=== PATIENT | male | born 1990 | race African-American/Black ===

== ENCOUNTER 2020-02-29 16:27 | Inpatient (IN) | payer OTHER ==
[~2020-02-29 16:27] MED LIST: Iopamidol 370 76% 50 ML VIAL FS ONE; Iopamidol-370 76% 500 ML 1 ML ONE
[2020-02-29] MEDS ORDERED: Ondansetron PF 4 MG/2 ML Vial ONE (16:36)
[2020-02-29] MEDS ORDERED: Fentanyl 100 MCG/2 ML VIAL ONE ×2 (16:36→18:59)
[2020-02-29] MEDS ORDERED: Boostrix 0.5 ML VIAL ONE (16:38)
[2020-02-29 16:47] LABS: #Basophils 0.1 thou/uL (0.0-0.2); #Eosinphils 0.3 thou/uL (0.0-0.7); #Lymphocytes 4.8 thou/uL (1.20-3.40); #Monocytes 0.7 thou/uL (0.11-0.59); #Neutrophils 8.6 thou/uL (1.40-6.50); %Basophils 0.6 % (0.0-1.0); %Lymphocytes 33.2 % (21.0-51.0); %Monocytes 4.6 % (0.0-10.0); %Neutrophils 59.6 % (42.0-75.0); Hemoglobin 16.6 g/dL (14.0-18.0); Mean Corpuscular HGB CONC 33.6 g/dL (32.0-36.0); Mean Corpuscular Hemoglobin 33.5 pg (27.0-31.0); Mean Corpuscular Volume 99.7 fL (78.0-98.0); Mean Platelet Volume 7.5 fL (7.4-10.4); Platelet Count 339 thou/uL (130-400); RBC Distribution Width 11.3 % (11.5-14.5); Red Blood Cell (RBC) Count 4.97 mill/uL (4.70-6.10); White Blood Cell (WBC) Count 14.5 thou/uL (4.8-10.8)
[2020-02-29 16:52] LABS: INR-International Normal Ratio 1.2; Prothrombin Time 15.5 sec (12.0-14.7)
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
[2020-02-29 16:55] LABS: ALT (SGPT) 74 U/L (8-55); AST (SGOT) 80 U/L (5-34); Albumin 4.2 g/dL (3.5-5.0); Alkaline Phosphatase 89 U/L (40-110); Anion Gap 21 mmol/L (10-20); BUN (Urea Nitrogen) 16 mg/dL (8.9-20.6); Bilirubin, Total 0.3 mg/dL (0.2-1.2); Calc. Creatinine Clearance 0 mL/min (70-130); Calcium 9.1 mg/dL (7.8-10.44); Carbon Dioxide 19 mmol/L (22-29); Chloride 105 mmol/L (98-107); Estimated GFR-MDRD 71; Globulin 3.1 g/dL (2.4-3.5); Glucose 105 mg/dL (70-105); Potassium 3.5 mmol/L (3.5-5.1); Protein, Total 7.3 g/dL (6.0-8.3); Sodium 141 mmol/L (136-145)
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
[2020-02-29] MEDS ORDERED: Ketorolac Tromethamine 30 MG/ML VIAL ONE (17:26)
[2020-02-29] MEDS ORDERED: diphenhydrAMINE 50 MG/ML VIAL IM PRN (17:32)
[2020-02-29] MEDS ORDERED: diphenhydrAMINE 25 MG CAP PO PRN (17:32)
[2020-02-29] MEDS ORDERED: Promethazine HCl 25 MG/ML VIAL IM PRN (17:32)
[2020-02-29] MEDS ORDERED: Naloxone HCl 0.4 mg/ml Vial IV PRN (17:32)
[2020-02-29] MEDS ORDERED: HYDROmorphone 10 mg/100 ml CADD IVPB PRN (17:32)
[2020-02-29] MEDS ORDERED: diphenhydrAMINE 50 MG/ML VIAL IVP PRN (17:32)
[2020-02-29] MEDS ORDERED: Ondansetron PF 4 MG/2 ML Vial IVP PRN (17:32)
[2020-02-29] MEDS ORDERED: Dextrose 50% Abboject 50 ML SYRINGE SLOW IVP PRN (17:41)
[2020-02-29] MEDS ORDERED: Dextrose 5% in Water 1,000 ML IV PRN (17:41)
[2020-02-29] MEDS ORDERED: Communication Order-Pharmacy FS SCH (17:45)
[2020-02-29] MEDS ORDERED: Ketamine 50 MG/ML (10ML VIAL) ONE (17:54)
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
[2020-02-29] MEDS ORDERED: Bacitracin 1 PK ONE (18:22)
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
[2020-02-29 19:41] LABS: Alcohol Less than 10 mg/dL (Less than 10); CK (CPK) 558 U/L (30-200); Magnesium 2.1 mg/dL (1.6-2.6)
[2020-02-29] MEDS ORDERED: Potassium Chloride 20 MEQ in Premix Bag 1 BAG IVPB SCH (20:30)
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
[2020-02-29 20:53] VITALS: BMI 28.3
[2020-02-29] MEDS: Sodium Chloride 0.9% 1,000 ML IV SCH (20:55)
[2020-02-29] MEDS: Bacitracin 1 PK TOP SCH (21:01)
[2020-02-29] MEDS: Gabapentin 300 MG CAP PO SCH (21:01)
[2020-02-29] MEDS: Cyclobenzaprine 10 MG TAB PO PRN (21:02)
[2020-02-29] MEDS: Senokot S 8.6-50 MG TAB PO SCH (21:02)
[2020-02-29] MEDS: Famotidine 20 MG TAB PO SCH (21:02)
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
[2020-02-29] MEDS: Acetaminophen 500 MG TAB PO SCH (23:14)
[2020-02-29] MEDS ORDERED: Ketorolac Tromethamine 30 MG/ML VIAL IVP SCH (23:59)
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
[2020-03-01 03:20] LABS: #Lymphocytes 1.1 thou/uL (1.20-3.40); #Monocytes 0.8 thou/uL (0.11-0.59); #Neutrophils 10.2 thou/uL (1.40-6.50); %Basophils 0.1 % (0.0-1.0); %Eosinophils 0.2 % (0.0-10.0); %Lymphocytes 9.1 % (21.0-51.0); %Monocytes 6.7 % (0.0-10.0); Hemoglobin 13.2 g/dL (14.0-18.0); Mean Corpuscular HGB CONC 34.2 g/dL (32.0-36.0); Mean Corpuscular Hemoglobin 33.9 pg (27.0-31.0); Mean Corpuscular Volume 99.2 fL (78.0-98.0); Mean Platelet Volume 7.4 fL (7.4-10.4); Platelet Count 255 thou/uL (130-400); RBC Distribution Width 11.3 % (11.5-14.5); Red Blood Cell (RBC) Count 3.89 mill/uL (4.70-6.10); White Blood Cell (WBC) Count 12.1 thou/uL (4.8-10.8)
[2020-03-01 03:49] LABS: CK (CPK) 2951 U/L (30-200); Phosphorus 4.1 mg/dL (2.3-4.7)
[2020-03-01] MEDS ORDERED: Fentanyl 100 MCG/2 ML VIAL SLOW IVP SCH (04:45)
[2020-03-01] MEDS ORDERED: Fentanyl 100 MCG/2 ML VIAL ONE ×4 (04:47→18:50)
[2020-03-01] MEDS ORDERED: Lidocaine 1% w/Epinephrine 1:100K 20 ML VIAL ONE (05:01)
[2020-03-01] MEDS: Sodium Chloride 0.9% 1,000 ML IV SCH ×5 (05:51→21:28)
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
[2020-03-01] MEDS: CEFAZOLIN 2 GM in Premix Bag 1 BAG IVPB SCH ×3 (06:54→22:43)
[2020-03-01] MEDS: Acetaminophen 500 MG TAB PO SCH ×4 (07:13→23:52)
[2020-03-01] MEDS: Albuterol 200 PUFF (6.7GM INHALER) INH SCH ×3 (07:30→22:14)
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
[2020-03-01 07:56] LABS: ALT (SGPT) 61 U/L (8-55); AST (SGOT) 74 U/L (5-34); Albumin 3.4 g/dL (3.5-5.0); Alkaline Phosphatase 51 U/L (40-110); Anion Gap 14 mmol/L (10-20); BUN (Urea Nitrogen) 20 mg/dL (8.9-20.6); Bilirubin, Total 0.5 mg/dL (0.2-1.2); Calc. Creatinine Clearance 127 mL/min (70-130); Calcium 7.7 mg/dL (7.8-10.44); Carbon Dioxide 23 mmol/L (22-29); Chloride 108 mmol/L (98-107); Estimated GFR-MDRD 80; Globulin 2.3 g/dL (2.4-3.5); Glucose 142 mg/dL (70-105); Magnesium 1.8 mg/dL (1.6-2.6); Potassium 4.5 mmol/L (3.5-5.1); Protein, Total 5.7 g/dL (6.0-8.3); Sodium 140 mmol/L (136-145)
--- NOTE | 2020-03-01 11:41 | CT ---
CT Pelvis W Con History: Bladder injury. Urethral injury. Comparison: Cystogram same day. Ureterogram same day. CT pelvis prior day Findings: CT of the pelvis performed after instillation of contrast both through the urethra retrogra de and after the retrograde instillation of contrast through the suprapubic catheter. The suprapubic catheter is outside the lumen of the urinary bladder. There is an a small defect in th e right anterior urinary bladder wall with tenting of the urinary bladder. Abnormal extraperitoneal contrast extending through the right anterior abdominal wall from defects of the rectus abdominis/adductor aponeurosis with gas and fluid along the right anterior hemiabdomen soft tissues which is new from the comparison examination. Contrast, fluid and gas also extends into the right inguinal canal and right medial thigh. Complex pelvic fractures are similar. Impression: Small right anterior urinary bladder wall defect with contrast within the urinary bladder as well as extraperitoneal space and tracking along the right anterior abdominal wall fat through defects of the rectus abdominis/adductor aponeurosis. Contrast also extends into the medial right thi gh intermuscular space and right inguinal ring. The gas which extends into the defects is likely sequela of multiple urinary bladder irrigations.
--- NOTE | 2020-03-01 11:44 | RAD ---
XR Urethrogram Retrograde History: Evaluate urethral injury Comparison: None. Findings: 10 mL of contrast was instilled retrograde through the urethra. There is complete rupture o f the membranous urethra with contrast extending into the periurethral space and prevascular space extending along the right medial thigh. Impression: Complete rupture of the membranous urethra with tracking of contrast into the medial righ t thigh.
--- NOTE | 2020-03-01 11:47 | RAD ---
XR Cystogram STANDARD History: Urethral and bladder trauma Comparison: CT examination prior day Findings: Contrast was instilled retrograde through the suprapubic catheter. There is contrast extending into the perivesicular space outside the lumen. Contrast extends into the urinary bladder secondarily after approximately 20 mL of contrast instillation. There is contrast extending into the right chest wall. Impression: 1. Extraluminal suprapubic catheter with the urinary bladder filling secondarily through a small righ t anterior wall defect. 2. Contrast extends from the perivesicular space into the right chest wall. Findings of the retrograde urethrogram, cystogram, and pelvis CT were discussed with Dr. Rajat murdock the morning.
[2020-03-01] MEDS ORDERED: Lidocaine 1% PF 5 ML VIAL ONE (11:50)
[2020-03-01] MEDS ORDERED: Dexamethasone 20 MG/5 ML VIAL ONE (11:50)
[2020-03-01] MEDS ORDERED: Rocuronium Bromide 10 MG/ML (10ML VIAL) ONE (11:50)
[2020-03-01] MEDS ORDERED: Ondansetron PF 4 MG/2 ML Vial ONE (11:50)
[2020-03-01] MEDS ORDERED: PROPOFOL 200 MG/20 ML VIAL ONE (11:50)
[2020-03-01] MEDS ORDERED: Glycopyrrolate 0.2 MG/ML 5 ML SYRINGE ONE (11:50)
[2020-03-01] MEDS ORDERED: Succinylcholine Chloride 20 MG/ML 10 ml SYRINGE FS ONE (11:50)
[2020-03-01] MEDS: Bacitracin 1 PK TOP SCH ×2 (11:57→21:28)
[2020-03-01] MEDS: Senokot S 8.6-50 MG TAB PO SCH ×2 (11:58→21:28)
[2020-03-01] MEDS: Famotidine 20 MG TAB PO SCH ×2 (11:58→21:28)
[2020-03-01] MEDS: Gabapentin 300 MG CAP PO SCH ×3 (11:58→21:28)
[2020-03-01] MEDS: Polyethylene Glycol 3350 17 GM Packet PO SCH (11:58)
[2020-03-01 12:41] LABS: SARS-CoV-2 MS2 Positive; SARS-CoV-2 N Gene Negative; SARS-CoV-2 S Gene Negative; SARS-CoV-2 by NAA Not Detected (NotDetected); SARS-CoV-2 orf1ab Negative
[2020-03-01] MEDS ORDERED: Phenylephrine 10 MG/ML VIAL ONE (13:34)
[2020-03-01] MEDS ORDERED: Sodium Chloride 0.9% 10 ML ONE (14:01)
[2020-03-01] MEDS ORDERED: Sodium Chloride 0.9% 0 ML ONE (14:01)
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
[2020-03-01] MEDS ORDERED: Bupivacaine HCl 0.5%/Epinephrine 1:200,000/PF 30 ml Vial ONE (15:23)
[2020-03-01] MEDS ORDERED: Rocuronium Bromide 50 MG/5 ML VIAL ONE (15:23)
--- NOTE | 2020-03-01 18:18 | RAD ---
AP PELVIS: 03/01/20 A total of six fluoroscopic images presented from OR. INDICATIONS: Intraoperative imaging during open reduction and internal fixation of the pelvis. FINDINGS/IMPRESSION: Findings demonstrate instruments overlying both hemipelvis regions. Intraoperative imaging. POS: AGW
--- NOTE | 2020-03-01 18:19 | RAD ---
LEFT SHOULDER: 03/01/20 A single fluoroscopic image from the OR presented. INDICATIONS: Intraoperative imaging during acromioplasty procedure. FINDINGS/IMPRESSION: AP view of the left shoulder performed during intraoperative imaging. POS: AGW
[2020-03-01] MEDS ORDERED: Meperidine HCl/PF 25 MG/ML VIAL ONE (18:26)
[2020-03-01] MEDS ORDERED: HYDROmorphone 2 MG/ML VIAL SLOW IVP PRN (18:27)
[2020-03-01] MEDS ORDERED: Morphine Sulfate 2 MG/ML SYRINGE SLOW IVP PRN (18:27)
[2020-03-01] MEDS ORDERED: Meperidine HCl/PF 25 MG/ML VIAL SLOW IVP PRN (18:27)
[2020-03-01] MEDS ORDERED: Ketorolac Tromethamine 30 MG/ML VIAL IVP PRN (18:27)
[2020-03-01] MEDS ORDERED: PACU-Morphine 4MG/ML VIAL SLOW IVP PRN (18:27)
[2020-03-01] MEDS ORDERED: Ondansetron HCl/PF 4 MG/2 ML Vial IVP PRN (18:27)
[2020-03-01] MEDS ORDERED: HYDROmorphone 2 MG/ML VIAL ONE (18:51)
[2020-03-01 21:05] LABS: Hemoglobin 11.5 g/dL (14.0-18.0); Mean Corpuscular Hemoglobin 33.9 pg (27.0-31.0); Mean Corpuscular Volume 99.6 fL (78.0-98.0); Mean Platelet Volume 7.1 fL (7.4-10.4); Platelet Count 224 thou/uL (130-400); RBC Distribution Width 11.3 % (11.5-14.5); White Blood Cell (WBC) Count 12.4 thou/uL (4.8-10.8)
[2020-03-01 21:13] LABS: INR-International Normal Ratio 1.4; Prothrombin Time 17.1 sec (12.0-14.7)
[2020-03-01 21:14] LABS: PTT 37.4 sec (22.9-36.1)
[2020-03-01 21:23] LABS: Lactic Acid 2.3 mmol/L (0.5-2.2)
[2020-03-01 21:36] LABS: Anion Gap 11 mmol/L (10-20); BUN (Urea Nitrogen) 15 mg/dL (8.9-20.6); Calc. Creatinine Clearance 170 mL/min (70-130); Calcium 7.7 mg/dL (7.8-10.44); Carbon Dioxide 22 mmol/L (22-29); Chloride 110 mmol/L (98-107); Estimated GFR-MDRD Greater than 90; Glucose 125 mg/dL (70-105); Magnesium 1.7 mg/dL (1.6-2.6); Phosphorus 2.1 mg/dL (2.3-4.7); Potassium 4.4 mmol/L (3.5-5.1); Sodium 139 mmol/L (136-145)
[2020-03-01] MEDS ORDERED: Magnesium 2 GM/50 ML 2 GM in Premix Bag 1 BAG IVPB SCH (21:45)
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
[2020-03-01 21:58] LABS: CK (CPK) 4268 U/L (30-200)
[2020-03-01] MEDS ORDERED: Sodium Phosphate 30 MMOL in Sodium Chloride 0.9% 250 ML 250 ML IVPB SCH (22:00)
[2020-03-01] MEDS ORDERED: CEFAZOLIN 2 GM in Premix Bag 1 BAG IVPB SCH (22:00)
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
[2020-03-02 03:40] LABS: #Lymphocytes 1.2 thou/uL (1.20-3.40); #Monocytes 0.7 thou/uL (0.11-0.59); #Neutrophils 9.8 thou/uL (1.40-6.50); %Basophils 0.1 % (0.0-1.0); %Eosinophils 0.2 % (0.0-10.0); %Lymphocytes 10.6 % (21.0-51.0); %Monocytes 5.7 % (0.0-10.0); %Neutrophils 83.5 % (42.0-75.0); Hemoglobin 10.6 g/dL (14.0-18.0); Mean Corpuscular HGB CONC 34.2 g/dL (32.0-36.0); Mean Corpuscular Hemoglobin 33.9 pg (27.0-31.0); Mean Platelet Volume 7.3 fL (7.4-10.4); Platelet Count 216 thou/uL (130-400); RBC Distribution Width 11.1 % (11.5-14.5); Red Blood Cell (RBC) Count 3.12 mill/uL (4.70-6.10); White Blood Cell (WBC) Count 11.7 thou/uL (4.8-10.8)
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
[2020-03-02] MEDS: Sodium Chloride 0.9% 1,000 ML IV SCH (03:59)
[2020-03-02 04:02] LABS: Anion Gap 12 mmol/L (10-20); BUN (Urea Nitrogen) 12 mg/dL (8.9-20.6); Calc. Creatinine Clearance 189 mL/min (70-130); Calcium 7.4 mg/dL (7.8-10.44); Carbon Dioxide 22 mmol/L (22-29); Chloride 108 mmol/L (98-107); Estimated GFR-MDRD Greater than 90; Glucose 114 mg/dL (70-105); Phosphorus 2.3 mg/dL (2.3-4.7); Sodium 138 mmol/L (136-145)
[2020-03-02 04:15] LABS: CK (CPK) 5467 U/L (30-200)
[2020-03-02] MEDS: CEFAZOLIN 2 GM in Premix Bag 1 BAG IVPB SCH ×3 (05:04→21:47)
[2020-03-02] MEDS: Acetaminophen 500 MG TAB PO SCH ×4 (06:00→23:57)
[2020-03-02] MEDS: Albuterol 200 PUFF (6.7GM INHALER) INH SCH ×3 (07:41→18:45)
[2020-03-02] MEDS: Famotidine 20 MG TAB PO SCH ×2 (09:16→21:47)
[2020-03-02] MEDS: Bacitracin 1 PK TOP SCH ×2 (09:16→21:47)
[2020-03-02] MEDS: Senokot S 8.6-50 MG TAB PO SCH ×2 (09:16→21:47)
[2020-03-02] MEDS: Lactated Ringer's 1,000 ML IV SCH ×3 (09:16→19:45)
[2020-03-02] MEDS: Enoxaparin Sodium 30 MG/0.3 ML SYRINGE SC SCH ×2 (09:17→21:48)
[2020-03-02] MEDS: Gabapentin 300 MG CAP PO SCH ×3 (09:17→21:48)
[2020-03-02] MEDS: Polyethylene Glycol 3350 17 GM Packet PO SCH (09:17)
[2020-03-02] MEDS ORDERED: HYDROmorphone 10 mg/100 ml CADD IVPB PRN (09:50)
[2020-03-02] MEDS: Scopolamine 1.5 mg/72 hour Patch TD SCH (12:38)
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
[2020-03-02] MEDS: Metoclopramide HCl 10 MG/2 ML VIAL IVP SCH (21:46)
[2020-03-02] MEDS: Trospium 20 MG TAB PO SCH (21:47)
[2020-03-02] MEDS: Docusate 100 MG CAP PO SCH (21:47)
[2020-03-02] MEDS ORDERED: HYDROcodone/Acetaminophen 10/325 mg Tablet PO PRN (23:01)
[2020-03-02] MEDS: HYDROcodone/Acetaminophen 10/325 mg Tablet PO PRN (23:54)
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
[2020-03-03] MEDS: Lactated Ringer's 1,000 ML IV SCH ×5 (01:35→21:37)
[2020-03-03] MEDS: CEFAZOLIN 2 GM in Premix Bag 1 BAG IVPB SCH ×2 (05:50→23:07)
[2020-03-03] MEDS: Acetaminophen 500 MG TAB PO SCH ×3 (06:02→18:09)
[2020-03-03 06:25] LABS: #Eosinphils 0.1 thou/uL (0.0-0.7); #Lymphocytes 1.3 thou/uL (1.20-3.40); #Monocytes 0.4 thou/uL (0.11-0.59); #Neutrophils 7.4 thou/uL (1.40-6.50); %Basophils 0.3 % (0.0-1.0); %Eosinophils 0.6 % (0.0-10.0); %Lymphocytes 13.9 % (21.0-51.0); %Monocytes 4.8 % (0.0-10.0); %Neutrophils 80.4 % (42.0-75.0); Hemoglobin 9.1 g/dL (14.0-18.0); Mean Corpuscular HGB CONC 33.8 g/dL (32.0-36.0); Mean Corpuscular Hemoglobin 33.4 pg (27.0-31.0); Mean Corpuscular Volume 98.9 fL (78.0-98.0); Mean Platelet Volume 7.3 fL (7.4-10.4); Platelet Count 211 thou/uL (130-400); RBC Distribution Width 11.1 % (11.5-14.5); Red Blood Cell (RBC) Count 2.72 mill/uL (4.70-6.10); White Blood Cell (WBC) Count 9.2 thou/uL (4.8-10.8)
[2020-03-03] MEDS: Albuterol 200 PUFF (6.7GM INHALER) INH SCH ×3 (06:30→18:26)
[2020-03-03] MEDS: Bacitracin 1 PK TOP SCH ×2 (08:50→21:10)
[2020-03-03] MEDS: Ferrous Sulfate 325 MG TAB PO SCH ×2 (08:50→18:07)
[2020-03-03] MEDS: Ascorbic Acid 500 mg Chewable Tablet PO SCH ×2 (08:50→21:10)
[2020-03-03] MEDS: Senokot S 8.6-50 MG TAB PO SCH ×2 (08:50→21:10)
[2020-03-03] MEDS: Gabapentin 300 MG CAP PO SCH ×3 (08:50→21:10)
[2020-03-03] MEDS: Calcium Carbonate 600 MG + Vit D TAB PO SCH ×2 (08:50→18:07)
[2020-03-03] MEDS: Famotidine 20 MG TAB PO SCH ×2 (08:50→21:11)
[2020-03-03] MEDS: Enoxaparin Sodium 30 MG/0.3 ML SYRINGE SC SCH ×2 (08:51→21:10)
[2020-03-03] MEDS: Docusate 100 MG CAP PO SCH ×2 (08:51→21:11)
[2020-03-03] MEDS: Metoclopramide HCl 10 MG/2 ML VIAL IVP SCH ×2 (08:52→21:11)
[2020-03-03] MEDS: Polyethylene Glycol 3350 17 GM Packet PO SCH (08:52)
[2020-03-03] MEDS: Trospium 20 MG TAB PO SCH ×2 (10:55→21:18)
--- NOTE | 2020-03-03 11:10 | RAD ---
LEFT KNEE TWO VIEWS: HISTORY: Patella pain. FINDINGS: The joint spaces are normally maintained. No fracture. No evidence of joint effusion. There is mild prepatellar soft tissue fullness, which may indicate edema or prepatellar bursitis. IMPRESSION: 1. No acute osseous abnormality. 2. Mild prepatellar soft tissue fullness. POS: AGW
[2020-03-03 11:21] LABS: Chloride 105 mmol/L (98-107); Potassium 3.5 mmol/L (3.5-5.1); Sodium 138 mmol/L (136-145)
[2020-03-03 11:22] LABS: Calcium 7.6 mg/dL (7.8-10.44); Glucose 100 mg/dL (70-105)
[2020-03-03 11:24] LABS: Anion Gap 11 mmol/L (10-20); Carbon Dioxide 26 mmol/L (22-29)
[2020-03-03 11:26] LABS: BUN (Urea Nitrogen) 9 mg/dL (8.9-20.6); Calc. Creatinine Clearance 211 mL/min (70-130); Estimated GFR-MDRD Greater than 90
[2020-03-03 11:28] LABS: CK (CPK) 2794 U/L (30-200); Magnesium 1.9 mg/dL (1.6-2.6); Phosphorus 1.7 mg/dL (2.3-4.7)
[2020-03-03] MEDS ORDERED: Magnesium Sulfate 2 GM in Premix Bag 1 BAG IVPB SCH (11:45)
[2020-03-03] MEDS ORDERED: Magnesium 2 GM/50 ML 2 GM in Premix Bag 1 BAG IVPB SCH (12:45)
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
[2020-03-03] MEDS: HYDROcodone/Acetaminophen 10/325 mg Tablet PO PRN ×2 (15:13→21:10)
[2020-03-04] MEDS: Acetaminophen 500 MG TAB PO SCH ×5 (01:41→23:02)
[2020-03-04] MEDS: HYDROcodone/Acetaminophen 10/325 mg Tablet PO PRN ×2 (02:51→09:18)
[2020-03-04] MEDS: Lactated Ringer's 1,000 ML IV SCH ×3 (02:55→11:49)
[2020-03-04 04:50] LABS: #Eosinphils 0.2 thou/uL (0.0-0.7); #Lymphocytes 1.3 thou/uL (1.20-3.40); #Monocytes 0.5 thou/uL (0.11-0.59); %Basophils 0.3 % (0.0-1.0); %Eosinophils 2.1 % (0.0-10.0); %Lymphocytes 14.3 % (21.0-51.0); %Monocytes 5.4 % (0.0-10.0); %Neutrophils 77.9 % (42.0-75.0); Hemoglobin 9.2 g/dL (14.0-18.0); Mean Corpuscular HGB CONC 33.9 g/dL (32.0-36.0); Mean Corpuscular Hemoglobin 33.2 pg (27.0-31.0); Platelet Count 240 thou/uL (130-400); RBC Distribution Width 11.1 % (11.5-14.5); Red Blood Cell (RBC) Count 2.77 mill/uL (4.70-6.10)
[2020-03-04] MEDS: CEFAZOLIN 2 GM in Premix Bag 1 BAG IVPB SCH ×3 (05:03→21:05)
[2020-03-04] MEDS: Cyclobenzaprine 10 MG TAB PO PRN ×2 (05:03→16:44)
[2020-03-04 05:17] LABS: Anion Gap 11 mmol/L (10-20); BUN (Urea Nitrogen) 9 mg/dL (8.9-20.6); CK (CPK) 2181 U/L (30-200); Calc. Creatinine Clearance 222 mL/min (70-130); Calcium 7.6 mg/dL (7.8-10.44); Carbon Dioxide 25 mmol/L (22-29); Chloride 106 mmol/L (98-107); Estimated GFR-MDRD Greater than 90; Glucose 98 mg/dL (70-105); Magnesium 1.9 mg/dL (1.6-2.6); Phosphorus 2.3 mg/dL (2.3-4.7); Potassium 3.6 mmol/L (3.5-5.1); Sodium 138 mmol/L (136-145)
[2020-03-04] MEDS: Albuterol 200 PUFF (6.7GM INHALER) INH SCH ×3 (08:07→18:45)
[2020-03-04] MEDS: Famotidine 20 MG TAB PO SCH ×2 (09:16→21:04)
[2020-03-04] MEDS: Ferrous Sulfate 325 MG TAB PO SCH ×2 (09:17→16:44)
[2020-03-04] MEDS: Ascorbic Acid 500 mg Chewable Tablet PO SCH ×2 (09:17→21:03)
[2020-03-04] MEDS: Docusate 100 MG CAP PO SCH ×2 (09:17→21:03)
[2020-03-04] MEDS: Calcium Carbonate 600 MG + Vit D TAB PO SCH ×2 (09:17→16:44)
[2020-03-04] MEDS: Senokot S 8.6-50 MG TAB PO SCH ×2 (09:17→21:04)
[2020-03-04] MEDS: Gabapentin 300 MG CAP PO SCH ×3 (09:18→21:03)
[2020-03-04] MEDS: Bacitracin 1 PK TOP SCH ×2 (09:18→21:04)
[2020-03-04] MEDS: Trospium 20 MG TAB PO SCH ×2 (09:20→21:04)
[2020-03-04] MEDS: Polyethylene Glycol 3350 17 GM Packet PO SCH (09:20)
[2020-03-04] MEDS: Metoclopramide HCl 10 MG/2 ML VIAL IVP SCH ×2 (09:20→21:04)
[2020-03-04] MEDS: Enoxaparin Sodium 30 MG/0.3 ML SYRINGE SC SCH ×2 (09:20→21:04)
[2020-03-04] MEDS ORDERED: traMADol HCl 50 MG TAB PO SCH (12:45)
[2020-03-04] MEDS: traMADol HCl 50 MG TAB PO SCH ×3 (12:52→23:02)
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
[2020-03-04] MEDS: Ibuprofen 600 MG TAB PO SCH ×2 (14:57→21:03)
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
[2020-03-05] MEDS: Cyclobenzaprine 10 MG TAB PO PRN ×2 (03:25→20:40)
[2020-03-05] MEDS: traMADol HCl 50 MG TAB PO SCH (05:14)
[2020-03-05] MEDS: Acetaminophen 500 MG TAB PO SCH (05:14)
[2020-03-05] MEDS: Ibuprofen 600 MG TAB PO SCH ×3 (05:14→21:12)
[2020-03-05] MEDS: CEFAZOLIN 2 GM in Premix Bag 1 BAG IVPB SCH ×3 (05:14→21:12)
[2020-03-05 05:17] LABS: #Eosinphils 0.3 thou/uL (0.0-0.7); #Lymphocytes 1.4 thou/uL (1.20-3.40); #Monocytes 0.5 thou/uL (0.11-0.59); #Neutrophils 4.9 thou/uL (1.40-6.50); %Basophils 0.3 % (0.0-1.0); %Eosinophils 4.1 % (0.0-10.0); %Lymphocytes 19.9 % (21.0-51.0); %Neutrophils 68.6 % (42.0-75.0); Hemoglobin 9.7 g/dL (14.0-18.0); Mean Corpuscular HGB CONC 33.4 g/dL (32.0-36.0); Mean Corpuscular Hemoglobin 32.9 pg (27.0-31.0); Mean Corpuscular Volume 98.5 fL (78.0-98.0); Mean Platelet Volume 6.8 fL (7.4-10.4); Platelet Count 295 thou/uL (130-400); RBC Distribution Width 11.1 % (11.5-14.5); Red Blood Cell (RBC) Count 2.93 mill/uL (4.70-6.10); White Blood Cell (WBC) Count 7.1 thou/uL (4.8-10.8)
[2020-03-05] MEDS ORDERED: Acetaminophen/Codeine 30-300mg Tablet PO PRN ×3 (05:44→05:48)
[2020-03-05] MEDS ORDERED: Acetaminophen 500 MG TAB PO SCH (05:45)
[2020-03-05 05:57] LABS: Anion Gap 13 mmol/L (10-20); BUN (Urea Nitrogen) 12 mg/dL (8.9-20.6); Calc. Creatinine Clearance 222 mL/min (70-130); Calcium 7.9 mg/dL (7.8-10.44); Carbon Dioxide 24 mmol/L (22-29); Chloride 105 mmol/L (98-107); Estimated GFR-MDRD Greater than 90; Glucose 96 mg/dL (70-105); Magnesium 1.9 mg/dL (1.6-2.6); Phosphorus 3.8 mg/dL (2.3-4.7); Potassium 3.9 mmol/L (3.5-5.1); Sodium 138 mmol/L (136-145)
[2020-03-05] MEDS: Albuterol 200 PUFF (6.7GM INHALER) INH SCH ×3 (07:10→18:48)
[2020-03-05] MEDS: Metoclopramide HCl 10 MG/2 ML VIAL IVP SCH ×2 (09:25→20:33)
[2020-03-05] MEDS: Enoxaparin Sodium 30 MG/0.3 ML SYRINGE SC SCH ×2 (09:25→20:33)
[2020-03-05] MEDS: Bacitracin 1 PK TOP SCH ×2 (09:26→20:33)
[2020-03-05] MEDS: Polyethylene Glycol 3350 17 GM Packet PO SCH (09:26)
[2020-03-05] MEDS: Trospium 20 MG TAB PO SCH ×2 (09:26→20:33)
[2020-03-05] MEDS: Famotidine 20 MG TAB PO SCH ×2 (09:26→20:29)
[2020-03-05] MEDS: Senokot S 8.6-50 MG TAB PO SCH ×2 (09:26→20:33)
[2020-03-05] MEDS: Gabapentin 300 MG CAP PO SCH (09:26)
[2020-03-05] MEDS: Calcium Carbonate 600 MG + Vit D TAB PO SCH ×2 (09:27→17:24)
[2020-03-05] MEDS: Ferrous Sulfate 325 MG TAB PO SCH ×2 (09:27→17:24)
[2020-03-05] MEDS: Docusate 100 MG CAP PO SCH ×2 (09:27→20:30)
[2020-03-05] MEDS: Ascorbic Acid 500 mg Chewable Tablet PO SCH ×2 (09:27→20:32)
[2020-03-05] MEDS ORDERED: Morphine 4 MG/ML VIAL SLOW IVP SCH (11:45)
[2020-03-05] MEDS: Scopolamine 1.5 mg/72 hour Patch TD SCH (12:15)
[2020-03-05] MEDS: cloNIDine 0.1 MG TAB PO SCH ×3 (12:16→23:49)
[2020-03-05] MEDS: Acetaminophen/Codeine 30-300mg Tablet PO SCH ×4 (13:29→22:20)
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
[2020-03-05] MEDS: Pregabalin 75 MG CAP PO SCH (20:31)
[2020-03-05] MEDS ORDERED: Morphine 2 MG/ML VIAL SLOW IVP SCH (23:30)
[2020-03-05] MEDS: HYDROcodone/Acetaminophen 5/325 mg Tablet PO SCH (23:51)
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
[2020-03-06] MEDS: HYDROcodone/Acetaminophen 5/325 mg Tablet PO PRN ×3 (03:13→21:46)
[2020-03-06] MEDS: Ibuprofen 600 MG TAB PO SCH ×2 (05:14→13:58)
[2020-03-06] MEDS: CEFAZOLIN 2 GM in Premix Bag 1 BAG IVPB SCH ×3 (05:14→21:45)
[2020-03-06] MEDS: Cyclobenzaprine 10 MG TAB PO PRN (05:14)
[2020-03-06] MEDS: cloNIDine 0.1 MG TAB PO SCH ×4 (05:14→23:19)
[2020-03-06] MEDS: HYDROcodone/Acetaminophen 5/325 mg Tablet PO SCH ×4 (05:14→23:20)
[2020-03-06] MEDS: Enoxaparin Sodium 30 MG/0.3 ML SYRINGE SC SCH ×2 (08:46→21:36)
[2020-03-06] MEDS: Ferrous Sulfate 325 MG TAB PO SCH ×2 (08:46→17:34)
[2020-03-06] MEDS: Docusate 100 MG CAP PO SCH ×2 (08:46→21:37)
[2020-03-06] MEDS: Bacitracin 1 PK TOP SCH ×2 (08:46→21:37)
[2020-03-06] MEDS: Trospium 20 MG TAB PO SCH ×2 (08:46→21:37)
[2020-03-06] MEDS: Metoclopramide HCl 10 MG/2 ML VIAL IVP SCH ×2 (08:46→21:37)
[2020-03-06] MEDS: Polyethylene Glycol 3350 17 GM Packet PO SCH (08:46)
[2020-03-06] MEDS: Calcium Carbonate 600 MG + Vit D TAB PO SCH ×2 (08:46→17:34)
[2020-03-06] MEDS: Senokot S 8.6-50 MG TAB PO SCH ×2 (08:46→21:37)
[2020-03-06] MEDS: Famotidine 20 MG TAB PO SCH ×2 (08:46→21:37)
[2020-03-06] MEDS: Ascorbic Acid 500 mg Chewable Tablet PO SCH ×2 (08:46→21:37)
[2020-03-06] MEDS: Pregabalin 75 MG CAP PO SCH ×2 (08:46→21:37)
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
[2020-03-06] MEDS: Albuterol 200 PUFF (6.7GM INHALER) INH SCH ×3 (09:48→18:20)
[2020-03-06] MEDS ORDERED: Morphine 2 MG/ML VIAL SLOW IVP SCH (11:00)
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
[2020-03-06] MEDS: Cyclobenzaprine 10 MG TAB PO SCH ×2 (13:59→21:37)
[2020-03-06] MEDS: Morphine 4 MG/ML VIAL SLOW IVP PRN (13:59)
[2020-03-06] MEDS: Acetaminophen 325 MG TAB PO SCH ×2 (17:35→23:19)
[2020-03-06] MEDS ORDERED: Acetaminophen 500 MG TAB PO SCH ×2 (18:00)
[2020-03-06] MEDS: Melatonin 3 MG TAB PO PRN (23:19)
[2020-03-07] MEDS: Morphine 4 MG/ML VIAL SLOW IVP PRN ×4 (02:53→21:01)
[2020-03-07] MEDS: HYDROcodone/Acetaminophen 5/325 mg Tablet PO SCH ×4 (05:24→23:11)
[2020-03-07] MEDS: Acetaminophen 325 MG TAB PO SCH ×4 (05:25→23:11)
[2020-03-07] MEDS: CEFAZOLIN 2 GM in Premix Bag 1 BAG IVPB SCH ×3 (05:25→21:48)
[2020-03-07] MEDS: cloNIDine 0.1 MG TAB PO SCH ×4 (05:29→23:20)
[2020-03-07] MEDS: Albuterol 200 PUFF (6.7GM INHALER) INH SCH ×3 (07:06→18:14)
[2020-03-07] MEDS ORDERED: Magnesium Citrate 300 ML BOT PO SCH (08:30)
[2020-03-07] MEDS ORDERED: Bisacodyl 10 MG SUPP PR SCH (09:00)
[2020-03-07] MEDS: Famotidine 20 MG TAB PO SCH ×2 (09:06→20:48)
[2020-03-07] MEDS: Docusate 100 MG CAP PO SCH ×2 (09:06→20:47)
[2020-03-07] MEDS: Senokot S 8.6-50 MG TAB PO SCH ×2 (09:06→20:47)
[2020-03-07] MEDS: Metoclopramide HCl 10 MG/2 ML VIAL IVP SCH ×2 (09:06→20:48)
[2020-03-07] MEDS: Polyethylene Glycol 3350 17 GM Packet PO SCH (09:06)
[2020-03-07] MEDS: Ferrous Sulfate 325 MG TAB PO SCH ×2 (09:07→17:50)
[2020-03-07] MEDS: Ibuprofen 600 MG TAB PO PRN ×2 (09:07→23:11)
[2020-03-07] MEDS: Enoxaparin Sodium 30 MG/0.3 ML SYRINGE SC SCH ×2 (09:07→20:48)
[2020-03-07] MEDS: Gabapentin 300 MG CAP PO SCH ×3 (09:07→20:48)
[2020-03-07] MEDS: Calcium Carbonate 600 MG + Vit D TAB PO SCH ×2 (09:07→17:50)
[2020-03-07] MEDS: tiZANidine HCl 4 MG TAB PO SCH ×3 (09:07→20:46)
[2020-03-07] MEDS: Ascorbic Acid 500 mg Chewable Tablet PO SCH ×2 (09:07→20:47)
[2020-03-07] MEDS: Bacitracin 1 PK TOP SCH ×2 (09:07→22:49)
[2020-03-07] MEDS: Trospium 20 MG TAB PO SCH ×2 (09:07→20:49)
[2020-03-07] MEDS: HYDROcodone/Acetaminophen 5/325 mg Tablet PO PRN (09:07)
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
[2020-03-07] MEDS: Prazosin HCl 1 MG CAP PO SCH (20:49)
[2020-03-08] MEDS: Morphine 4 MG/ML VIAL SLOW IVP PRN ×2 (00:49→06:06)
[2020-03-08] MEDS: Acetaminophen 325 MG TAB PO SCH (05:17)
[2020-03-08] MEDS: HYDROcodone/Acetaminophen 5/325 mg Tablet PO SCH (05:17)
[2020-03-08] MEDS: cloNIDine 0.1 MG TAB PO SCH ×3 (05:18→17:59)
[2020-03-08] MEDS: CEFAZOLIN 2 GM in Premix Bag 1 BAG IVPB SCH ×3 (05:18→22:23)
[2020-03-08] MEDS: Albuterol 200 PUFF (6.7GM INHALER) INH SCH ×3 (07:08→18:50)
[2020-03-08] MEDS: Ibuprofen 600 MG TAB PO PRN ×2 (09:13→17:59)
[2020-03-08] MEDS: HYDROcodone/Acetaminophen 5/325 mg Tablet PO PRN (09:14)
[2020-03-08] MEDS: Saccharomyces boulardii 250 MG CAP PO SCH ×2 (09:15→19:58)
[2020-03-08] MEDS: Gabapentin 300 MG CAP PO SCH ×3 (09:15→19:57)
[2020-03-08] MEDS: tiZANidine HCl 4 MG TAB PO SCH ×3 (09:15→19:59)
[2020-03-08] MEDS: Famotidine 20 MG TAB PO SCH ×2 (09:15→19:58)
[2020-03-08] MEDS: Trospium 20 MG TAB PO SCH ×2 (09:16→20:21)
[2020-03-08] MEDS: Docusate 100 MG CAP PO SCH ×2 (09:16→20:02)
[2020-03-08] MEDS: Calcium Carbonate 600 MG + Vit D TAB PO SCH ×2 (09:16→17:59)
[2020-03-08] MEDS: Ferrous Sulfate 325 MG TAB PO SCH ×2 (09:16→17:59)
[2020-03-08] MEDS: Senokot S 8.6-50 MG TAB PO SCH ×2 (09:17→20:01)
[2020-03-08] MEDS: Bacitracin 1 PK TOP SCH ×2 (09:18→20:00)
[2020-03-08] MEDS: Metoclopramide HCl 10 MG/2 ML VIAL IVP SCH ×2 (09:19→20:00)
[2020-03-08] MEDS: Enoxaparin Sodium 30 MG/0.3 ML SYRINGE SC SCH ×2 (09:19→19:58)
[2020-03-08] MEDS: Polyethylene Glycol 3350 17 GM Packet PO SCH (09:19)
[2020-03-08] MEDS: Ascorbic Acid 500 mg Chewable Tablet PO SCH ×2 (09:20→19:59)
[2020-03-08] MEDS ORDERED: oxyCODONE 5 MG TAB PO PRN (10:17)
[2020-03-08] MEDS: Acetaminophen 500 MG TAB PO SCH ×2 (11:05→17:59)
[2020-03-08] MEDS: oxyCODONE 5 MG TAB PO PRN ×3 (11:05→19:29)
[2020-03-08] MEDS: Scopolamine 1.5 mg/72 hour Patch TD SCH (11:07)
[2020-03-08] MEDS: Morphine 2 MG/ML VIAL SLOW IVP PRN ×3 (13:47→22:21)
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
[2020-03-08] MEDS: Prazosin HCl 1 MG CAP PO SCH (20:21)
[2020-03-09] MEDS: Acetaminophen 500 MG TAB PO SCH ×5 (00:33→23:16)
[2020-03-09] MEDS: oxyCODONE 5 MG TAB PO PRN ×5 (00:33→20:57)
[2020-03-09] MEDS: cloNIDine 0.1 MG TAB PO SCH ×5 (00:41→23:16)
[2020-03-09] MEDS: Morphine 2 MG/ML VIAL SLOW IVP PRN ×5 (02:33→23:14)
[2020-03-09] MEDS: CEFAZOLIN 2 GM in Premix Bag 1 BAG IVPB SCH ×3 (05:52→21:04)
[2020-03-09] MEDS: Albuterol 200 PUFF (6.7GM INHALER) INH SCH ×3 (07:08→19:43)
[2020-03-09] MEDS: Trospium 20 MG TAB PO SCH ×2 (09:49→21:03)
[2020-03-09] MEDS: Polyethylene Glycol 3350 17 GM Packet PO SCH (09:49)
[2020-03-09] MEDS: Senokot S 8.6-50 MG TAB PO SCH ×2 (09:50→21:03)
[2020-03-09] MEDS: Metoclopramide HCl 10 MG/2 ML VIAL IVP SCH ×2 (09:50→21:04)
[2020-03-09] MEDS: Calcium Carbonate 600 MG + Vit D TAB PO SCH ×2 (09:50→17:03)
[2020-03-09] MEDS: Famotidine 20 MG TAB PO SCH ×2 (09:50→21:01)
[2020-03-09] MEDS: Ferrous Sulfate 325 MG TAB PO SCH ×2 (09:50→17:03)
[2020-03-09] MEDS: Gabapentin 300 MG CAP PO SCH ×3 (09:51→21:00)
[2020-03-09] MEDS: Docusate 100 MG CAP PO SCH ×2 (09:51→21:02)
[2020-03-09] MEDS: Saccharomyces boulardii 250 MG CAP PO SCH ×2 (09:51→21:01)
[2020-03-09] MEDS: tiZANidine HCl 4 MG TAB PO SCH ×3 (09:51→20:59)
[2020-03-09] MEDS: Ascorbic Acid 500 mg Chewable Tablet PO SCH ×2 (09:51→20:59)
[2020-03-09] MEDS: Enoxaparin Sodium 30 MG/0.3 ML SYRINGE SC SCH ×2 (09:51→21:04)
[2020-03-09] MEDS: Bacitracin 1 PK TOP SCH ×2 (09:52→21:17)
--- NOTE | 2020-03-09 13:51 | EKG ---
Test Reason : TRAUMA Blood Pressure : / mmHG Vent. Rate : 073 BPM Atrial Rate : 073 BPM P-R Int : 154 ms QRS Dur : 106 ms QT Int : 422 ms P-R-T Axes : 049 004 008 degrees QTc Int : 464 ms Normal sinus rhythm with sinus arrhythmia Low voltage QRS Incomplete right bundle branch block Cannot rule out Anterior infarct , age undetermined Abnormal ECG Confirmed by CHING Mart, IOANA ([id number]), online editor RACHELE GUADARRAMA ([id number]) on 03/09/2020 1:50:55 PM Referred By: CHING Confirmed By:IOANA FLOWER M.D.
--- NOTE | 2020-03-09 13:51 | EKG ---
Test Reason : Blood Pressure : / mmHG Vent. Rate : 080 BPM Atrial Rate : 080 BPM P-R Int : 136 ms QRS Dur : 102 ms QT Int : 392 ms P-R-T Axes : 042 -24 022 degrees QTc Int : 452 ms Normal sinus rhythm Incomplete right bundle branch block Borderline ECG Confirmed by IOANA FLOWER M.D. ([id number]), movie editor RACHELE GUADARRAMA ([id number]) on 03/09/2020 1:50:53 PM Referred By: Confirmed By:IOANA FLOWER M.D.
[2020-03-09] MEDS: Prazosin HCl 1 MG CAP PO SCH (21:15)
[2020-03-09] MEDS: Melatonin 3 MG TAB PO PRN (23:16)
[2020-03-10] MEDS: oxyCODONE 5 MG TAB PO PRN ×5 (03:47→23:18)
[2020-03-10] MEDS: Ibuprofen 600 MG TAB PO PRN ×2 (03:47→14:19)
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
[2020-03-10] MEDS: Acetaminophen 500 MG TAB PO SCH ×4 (06:11→23:19)
[2020-03-10] MEDS: CEFAZOLIN 2 GM in Premix Bag 1 BAG IVPB SCH ×3 (06:11→23:21)
[2020-03-10] MEDS: Morphine 2 MG/ML VIAL SLOW IVP PRN ×3 (06:17→18:14)
[2020-03-10] MEDS: cloNIDine 0.1 MG TAB PO SCH ×4 (06:20→23:14)
[2020-03-10] MEDS: Albuterol 200 PUFF (6.7GM INHALER) INH SCH ×3 (06:45→19:09)
[2020-03-10] MEDS: Enoxaparin Sodium 30 MG/0.3 ML SYRINGE SC SCH ×2 (09:22→21:06)
[2020-03-10] MEDS: Polyethylene Glycol 3350 17 GM Packet PO SCH (09:22)
[2020-03-10] MEDS: Trospium 20 MG TAB PO SCH ×2 (09:22→21:05)
[2020-03-10] MEDS: Saccharomyces boulardii 250 MG CAP PO SCH ×2 (09:23→21:05)
[2020-03-10] MEDS: Gabapentin 300 MG CAP PO SCH ×3 (09:23→21:27)
[2020-03-10] MEDS: Metoclopramide HCl 10 MG/2 ML VIAL IVP SCH ×2 (09:23→21:05)
[2020-03-10] MEDS: Docusate 100 MG CAP PO SCH ×2 (09:23→21:04)
[2020-03-10] MEDS: Calcium Carbonate 600 MG + Vit D TAB PO SCH ×2 (09:23→17:05)
[2020-03-10] MEDS: Famotidine 20 MG TAB PO SCH ×2 (09:23→21:05)
[2020-03-10] MEDS: tiZANidine HCl 4 MG TAB PO SCH ×3 (09:24→21:22)
[2020-03-10] MEDS: Ascorbic Acid 500 mg Chewable Tablet PO SCH ×2 (09:24→21:04)
[2020-03-10] MEDS: Ferrous Sulfate 325 MG TAB PO SCH ×2 (09:24→17:05)
[2020-03-10] MEDS: Senokot S 8.6-50 MG TAB PO SCH ×2 (09:24→21:02)
[2020-03-10] MEDS: Bacitracin 1 PK TOP SCH ×2 (09:24→21:04)
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
[2020-03-10] MEDS: Prazosin HCl 1 MG CAP PO SCH (21:05)
[2020-03-11] MEDS: Morphine 2 MG/ML VIAL SLOW IVP PRN ×4 (00:16→22:00)
[2020-03-11] MEDS: oxyCODONE 5 MG TAB PO PRN ×4 (03:31→20:07)
[2020-03-11] MEDS: Ibuprofen 600 MG TAB PO PRN (03:32)
[2020-03-11] MEDS: CEFAZOLIN 2 GM in Premix Bag 1 BAG IVPB SCH ×3 (05:37→22:00)
[2020-03-11] MEDS: Acetaminophen 500 MG TAB PO SCH ×3 (05:37→17:34)
[2020-03-11] MEDS: cloNIDine 0.1 MG TAB PO SCH ×3 (06:17→17:31)
[2020-03-11] MEDS: Albuterol 200 PUFF (6.7GM INHALER) INH SCH ×3 (06:45→18:39)
[2020-03-11] MEDS: Enoxaparin Sodium 30 MG/0.3 ML SYRINGE SC SCH ×2 (08:31→20:12)
[2020-03-11] MEDS: Senokot S 8.6-50 MG TAB PO SCH ×2 (08:32→20:12)
[2020-03-11] MEDS: Polyethylene Glycol 3350 17 GM Packet PO SCH (08:32)
[2020-03-11] MEDS: tiZANidine HCl 4 MG TAB PO SCH ×3 (08:33→20:09)
[2020-03-11] MEDS: Ascorbic Acid 500 mg Chewable Tablet PO SCH ×2 (08:33→20:11)
[2020-03-11] MEDS: Calcium Carbonate 600 MG + Vit D TAB PO SCH ×2 (08:33→17:34)
[2020-03-11] MEDS: Docusate 100 MG CAP PO SCH ×2 (08:33→20:11)
[2020-03-11] MEDS: Famotidine 20 MG TAB PO SCH ×2 (08:33→20:09)
[2020-03-11] MEDS: Ferrous Sulfate 325 MG TAB PO SCH ×2 (08:33→17:34)
[2020-03-11] MEDS: Saccharomyces boulardii 250 MG CAP PO SCH ×2 (08:34→20:09)
[2020-03-11] MEDS: Trospium 20 MG TAB PO SCH ×2 (08:34→20:08)
[2020-03-11] MEDS: Gabapentin 300 MG CAP PO SCH ×3 (08:34→20:11)
[2020-03-11] MEDS: Metoclopramide HCl 10 MG/2 ML VIAL IVP SCH ×2 (08:34→20:11)
[2020-03-11] MEDS: Prazosin HCl 1 MG CAP PO SCH (20:12)
[2020-03-11] MEDS: Ibuprofen 600 MG TAB PO SCH (22:00)
[2020-03-12] MEDS: cloNIDine 0.1 MG TAB PO SCH ×4 (00:08→17:40)
[2020-03-12] MEDS: Acetaminophen 500 MG TAB PO SCH ×4 (00:08→17:40)
[2020-03-12] MEDS: oxyCODONE 5 MG TAB PO PRN ×5 (00:08→21:02)
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
[2020-03-12] MEDS: Morphine 2 MG/ML VIAL SLOW IVP PRN (04:01)
[2020-03-12] MEDS: Ibuprofen 600 MG TAB PO SCH ×3 (04:01→21:08)
[2020-03-12] MEDS: Albuterol 200 PUFF (6.7GM INHALER) INH SCH ×3 (06:36→18:31)
[2020-03-12] MEDS: tiZANidine HCl 4 MG TAB PO SCH ×3 (10:11→21:03)
[2020-03-12] MEDS: Gabapentin 300 MG CAP PO SCH ×3 (10:11→21:06)
[2020-03-12] MEDS: Saccharomyces boulardii 250 MG CAP PO SCH ×2 (10:11→21:04)
[2020-03-12] MEDS: Docusate 100 MG CAP PO SCH ×2 (10:12→21:05)
[2020-03-12] MEDS: Trospium 20 MG TAB PO SCH ×2 (10:12→21:06)
[2020-03-12] MEDS: Ferrous Sulfate 325 MG TAB PO SCH ×2 (10:12→17:40)
[2020-03-12] MEDS: Calcium Carbonate 600 MG + Vit D TAB PO SCH ×2 (10:12→17:40)
[2020-03-12] MEDS: Ascorbic Acid 500 mg Chewable Tablet PO SCH ×2 (10:13→21:04)
[2020-03-12] MEDS: Famotidine 20 MG TAB PO SCH ×2 (10:13→21:04)
[2020-03-12] MEDS: Senokot S 8.6-50 MG TAB PO SCH ×2 (10:13→21:05)
[2020-03-12] MEDS: Metoclopramide HCl 10 MG/2 ML VIAL IVP SCH ×2 (10:13→21:07)
[2020-03-12] MEDS: Polyethylene Glycol 3350 17 GM Packet PO SCH (10:16)
[2020-03-12] MEDS: Enoxaparin Sodium 30 MG/0.3 ML SYRINGE SC SCH ×2 (10:16→21:03)
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
[2020-03-12] MEDS: Prazosin HCl 1 MG CAP PO SCH (21:06)
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
[2020-03-13] MEDS: Acetaminophen 500 MG TAB PO SCH ×4 (01:03→17:41)
[2020-03-13] MEDS: cloNIDine 0.1 MG TAB PO SCH ×4 (01:03→17:42)
[2020-03-13] MEDS: oxyCODONE 5 MG TAB PO PRN ×5 (01:03→20:55)
[2020-03-13] MEDS: Ibuprofen 600 MG TAB PO SCH ×3 (05:29→21:01)
[2020-03-13] MEDS: Albuterol 200 PUFF (6.7GM INHALER) INH SCH ×2 (07:31→13:54)
[2020-03-13] MEDS: Polyethylene Glycol 3350 17 GM Packet PO SCH (09:24)
[2020-03-13] MEDS: Trospium 20 MG TAB PO SCH ×2 (09:25→20:55)
[2020-03-13] MEDS: Saccharomyces boulardii 250 MG CAP PO SCH ×2 (09:25→20:54)
[2020-03-13] MEDS: Gabapentin 300 MG CAP PO SCH ×3 (09:25→20:55)
[2020-03-13] MEDS: Metoclopramide HCl 10 MG/2 ML VIAL IVP SCH ×2 (09:25→20:55)
[2020-03-13] MEDS: Enoxaparin Sodium 30 MG/0.3 ML SYRINGE SC SCH ×2 (09:25→20:54)
[2020-03-13] MEDS: Famotidine 20 MG TAB PO SCH ×2 (09:25→20:55)
[2020-03-13] MEDS: Ferrous Sulfate 325 MG TAB PO SCH ×2 (09:26→17:41)
[2020-03-13] MEDS: Docusate 100 MG CAP PO SCH ×2 (09:26→20:54)
[2020-03-13] MEDS: Calcium Carbonate 600 MG + Vit D TAB PO SCH ×2 (09:26→17:41)
[2020-03-13] MEDS: Ascorbic Acid 500 mg Chewable Tablet PO SCH ×2 (09:26→20:55)
[2020-03-13] MEDS: tiZANidine HCl 4 MG TAB PO SCH ×3 (09:26→20:54)
[2020-03-13] MEDS: Senokot S 8.6-50 MG TAB PO SCH ×2 (09:26→20:54)
[2020-03-13] MEDS: PROVENTIL INHALER 6.7 G (200 INHALATIONS) INH SCH ×2 (14:46→23:24)
[2020-03-13] MEDS ORDERED: Albuterol 200 PUFF (6.7GM INHALER) INH SCH (15:00)
[2020-03-13] MEDS: Prazosin HCl 1 MG CAP PO SCH (21:00)
[2020-03-13] MEDS ORDERED: traMADol HCl 50 MG TAB PO SCH (22:30)
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
[2020-03-14] MEDS: cloNIDine 0.1 MG TAB PO SCH ×5 (01:01→23:38)
[2020-03-14] MEDS: oxyCODONE 5 MG TAB PO PRN ×5 (01:02→22:34)
[2020-03-14] MEDS: Acetaminophen 500 MG TAB PO SCH ×5 (01:02→23:37)
[2020-03-14] MEDS ORDERED: traMADol HCl 50 MG TAB PO SCH (04:30)
[2020-03-14] MEDS: Ibuprofen 600 MG TAB PO SCH ×3 (05:13→21:03)
--- NOTE | 2020-03-14 06:44 | RAD ---
RIGHT KNEE RADIOGRAPHS: 03/13/20 PROVIDED CLINICAL HISTORY: Pain. FINDINGS: There is no evidence for fracture or other acute osseous abnormality. If there is persistent clinical concern, conservative management and follow-up imaging are advised. IMPRESSION: As above. POS: RODRICK
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
[2020-03-14] MEDS: Ferrous Sulfate 325 MG TAB PO SCH ×2 (09:00→21:03)
[2020-03-14] MEDS: Famotidine 20 MG TAB PO SCH ×2 (09:00→21:03)
[2020-03-14] MEDS: Docusate 100 MG CAP PO SCH ×2 (09:00→21:03)
[2020-03-14] MEDS: Calcium Carbonate 600 MG + Vit D TAB PO SCH ×2 (09:00→18:01)
[2020-03-14] MEDS: Ascorbic Acid 500 mg Chewable Tablet PO SCH ×2 (09:00→21:02)
[2020-03-14] MEDS: Polyethylene Glycol 3350 17 GM Packet PO SCH (09:01)
[2020-03-14] MEDS: Enoxaparin Sodium 30 MG/0.3 ML SYRINGE SC SCH ×2 (09:01→21:03)
[2020-03-14] MEDS: Senokot S 8.6-50 MG TAB PO SCH ×2 (09:01→21:02)
[2020-03-14] MEDS: Gabapentin 300 MG CAP PO SCH ×3 (09:01→21:03)
[2020-03-14] MEDS: tiZANidine HCl 4 MG TAB PO SCH ×3 (09:01→21:03)
[2020-03-14] MEDS: Trospium 20 MG TAB PO SCH ×2 (09:01→21:05)
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
--- NOTE | 2020-03-14 12:07 | CT ---
CT OF THE RIGHT KNEE WITHOUT CONTRAST: Date: 03/14/2020 INDICATION: Increased pain with ambulation. COMPARISON: Right knee radiograph dated 03/13/2020. FINDINGS: Joint capsular distention is evident. No displaced fracture is evident. Soft tissues appear within no rmal limits of the surrounding knee. IMPRESSION: No joint effusion or definite displaced or depressed knee fracture. POS: BH
[2020-03-14] MEDS: PROVENTIL INHALER 6.7 G (200 INHALATIONS) INH SCH ×3 (13:12→18:14)
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
[2020-03-14] MEDS: Prazosin HCl 1 MG CAP PO SCH (21:05)
[2020-03-14] MEDS: traMADol HCl 50 MG TAB PO PRN (23:39)
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
[2020-03-15] MEDS: oxyCODONE 5 MG TAB PO PRN ×3 (03:09→15:53)
[2020-03-15] MEDS: cloNIDine 0.1 MG TAB PO SCH ×2 (05:31→11:40)
[2020-03-15] MEDS: Ibuprofen 600 MG TAB PO SCH ×2 (05:31→15:13)
[2020-03-15] MEDS: Acetaminophen 500 MG TAB PO SCH ×2 (05:31→11:44)
[2020-03-15] MEDS: traMADol HCl 50 MG TAB PO PRN (05:32)
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
[2020-03-15] MEDS: Enoxaparin Sodium 30 MG/0.3 ML SYRINGE SC SCH (09:12)
[2020-03-15] MEDS: PROVENTIL INHALER 6.7 G (200 INHALATIONS) INH SCH ×2 (09:15→15:13)
[2020-03-15] MEDS: tiZANidine HCl 4 MG TAB PO SCH ×2 (09:15→15:13)
[2020-03-15] MEDS: Polyethylene Glycol 3350 17 GM Packet PO SCH (09:16)
[2020-03-15] MEDS: Calcium Carbonate 600 MG + Vit D TAB PO SCH (09:16)
[2020-03-15] MEDS: Ascorbic Acid 500 mg Chewable Tablet PO SCH (09:16)
[2020-03-15] MEDS: Famotidine 20 MG TAB PO SCH (09:16)
[2020-03-15] MEDS: Gabapentin 300 MG CAP PO SCH ×2 (09:16→15:13)
[2020-03-15] MEDS: Docusate 100 MG CAP PO SCH (09:17)
[2020-03-15] MEDS: Senokot S 8.6-50 MG TAB PO SCH (09:17)
[2020-03-15] MEDS: Ferrous Sulfate 325 MG TAB PO SCH (09:17)
[2020-03-15] MEDS: Trospium 20 MG TAB PO SCH (09:17)
[2020-03-15 15:46] VITALS: BP 114/76; TEMP 98.4
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
== END 2020-03-15 17:15 | disposition home health service (06) | DRG 958 ==
LOC: ERS 16:27 → IMCU/EMU 17:50 → SURG A 03-02 12:53
PROVIDERS: ADMIT Surgery; ATTEND Surgery
PROC: 3E0234Z Introduction of Serum, Toxoid and Vaccine into Muscle, Percutaneous Approach (ICD-10-PCS; 2020-02-29)
PROC: 0T9B70Z Drainage of Bladder with Drainage Device, Via Natural or Artificial Opening (ICD-10-PCS; 2020-02-29)
PROC: 0HQ0XZZ Repair Scalp Skin, External Approach (ICD-10-PCS; 2020-02-29)
PROC: 0QS104Z Reposition Sacrum with Internal Fixation Device, Open Approach (ICD-10-PCS; principal; 2020-03-01)
PROC: 0QS235Z Reposition Right Pelvic Bone with External Fixation Device, Percutaneous Approach (ICD-10-PCS; 2020-03-01)
PROC: 0RS Upper Joints, Reposition (ICD-10-PCS; 2020-03-01)
PROC: 0T9B00Z Drainage of Bladder with Drainage Device, Open Approach (ICD-10-PCS; 2020-03-01)
PROC: 0T9B30Z Drainage of Bladder with Drainage Device, Percutaneous Approach (ICD-10-PCS; 2020-03-01)
PROC: 0TJB8ZZ Inspection of Bladder, Via Natural or Artificial Opening Endoscopic (ICD-10-PCS; 2020-03-01)
DX: S32.10XA Unspecified fracture of sacrum, initial encounter for closed fracture (principal); S22.089A Unspecified fracture of T11-T12 vertebra, initial encounter for closed fracture; S27.0XXA Traumatic pneumothorax, initial encounter; S32.592A Other specified fracture of left pubis, initial encounter for closed fracture; S32.502A Unspecified fracture of left pubis, initial encounter for closed fracture; S32.039A Unspecified fracture of third lumbar vertebra, initial encounter for closed fracture; S32.049A Unspecified fracture of fourth lumbar vertebra, initial encounter for closed fracture; S22.41XA Multiple fractures of ribs, right side, initial encounter for closed fracture; S22.32XA Fracture of one rib, left side, initial encounter for closed fracture; S37.892A Contusion of other urinary and pelvic organ, initial encounter; S37.20XA Unspecified injury of bladder, initial encounter; T79.7XXA Traumatic subcutaneous emphysema, initial encounter; S27.321A Contusion of lung, unilateral, initial encounter; N17.9 Acute kidney failure, unspecified; M62.82 Rhabdomyolysis; S37.30XA Unspecified injury of urethra, initial encounter; S30.0XXA Contusion of lower back and pelvis, initial encounter; S01.01XA Laceration without foreign body of scalp, initial encounter; S43.102A Unspecified dislocation of left acromioclavicular joint, initial encounter; Z20.828 Contact with and (suspected) exposure to other viral communicable diseases; R31.0 Gross hematuria; F17.210 Nicotine dependence, cigarettes, uncomplicated; E83.39 Other disorders of phosphorus metabolism; G47.00 Insomnia, unspecified; Z23 Encounter for immunization; Y92.410 Unspecified street and highway as the place of occurrence of the external cause; V43.62XA Car passenger injured in collision with other type car in traffic accident, initial encounter; Z88.1 Allergy status to other antibiotic agents
CPT/HCPCS: 12001; 36415; 51600; 51610; 51702; 70450; 71045; 71260; 72125; 72170; 72193; 74177; 74430; 74450; 76000; 80048; 80053; 80307; 82550; 83605; 83690; 83735; 84100; 85025; 85610; 85730; 86850; 86900; 86901; 87635; 90471; 90715; 93005; 94760; 96361; 96365; 96375; 96376; C1713; C1769; J0670; J0690; J1100; J1170; J1650; J1885; J2175; J2270; J2370; J2405; J2704; J2765; J3010; J3475; J3480; J3490; J7030; J7050; L0639; Q0163; Q9967; U0003

== ENCOUNTER 2020-03-23 11:35 | Day surgery (SDC) | payer OTHER, SELFPAY ==
[~2020-03-23 11:35] MED LIST changes: -Iopamidol 370 76% 50 ML VIAL FS ONE; -Iopamidol-370 76% 500 ML 1 ML ONE; +Ketorolac Tromethamine 30 MG/ML VIAL ONE; +Lidocaine 1% PF 5 ML VIAL ONE; +Ondansetron PF 4 MG/2 ML Vial ONE; +PROPOFOL 200 MG/20 ML VIAL ONE
[2020-03-23] MEDS ORDERED: Morphine 4 MG/ML VIAL ONE ×2 (12:11→14:44)
[2020-03-23 12:44] LABS: Bacteria/HPF None Seen HPF (None Seen); Bilirubin Negative (Negative); Blood, Urine 3+ (Negative); Clarity Turbid (Clear); Glucose, Urine (Dipstick) Normal (Negative); Ketone, Urine Negative (Negative); Leukocyte 25 Leu/uL (Negative); Mucous/LPF Rare LPF (<2+); Nitrite Negative (Negative); Protein, Urine (Dipstick) 50 mg/dL (Neg-Trace); RBC/HPF Greater than 50 HPF (0-3); Specific Gravity, Urine 1.027 (1.002-1.036); Squamous Epithelial None Seen HPF (0-3); Urobilinogen Normal mg/dL (Less than 2)
[2020-03-23 13:40] LABS: #Eosinphils 0.5 thou/uL (0.0-0.7); #Lymphocytes 1.5 thou/uL (1.20-3.40); #Monocytes 0.7 thou/uL (0.11-0.59); #Neutrophils 11.2 thou/uL (1.40-6.50); %Basophils 0.2 % (0.0-1.0); %Eosinophils 3.4 % (0.0-10.0); %Lymphocytes 10.9 % (21.0-51.0); %Monocytes 4.7 % (0.0-10.0); %Neutrophils 80.8 % (42.0-75.0); Hemoglobin 14.1 g/dL (14.0-18.0); Mean Corpuscular HGB CONC 32.9 g/dL (32.0-36.0); Mean Corpuscular Hemoglobin 32.6 pg (27.0-31.0); Mean Corpuscular Volume 99.1 fL (78.0-98.0); Mean Platelet Volume 6.4 fL (7.4-10.4); Platelet Count 671 thou/uL (130-400); RBC Distribution Width 11.8 % (11.5-14.5); Red Blood Cell (RBC) Count 4.31 mill/uL (4.70-6.10); White Blood Cell (WBC) Count 13.8 thou/uL (4.8-10.8)
[2020-03-23 14:03] LABS: ALT (SGPT) 20 U/L (8-55); AST (SGOT) 14 U/L (5-34); Albumin 4.2 g/dL (3.5-5.0); Alkaline Phosphatase 136 U/L (40-110); Anion Gap 12 mmol/L (10-20); BUN (Urea Nitrogen) 23 mg/dL (8.9-20.6); Bilirubin, Total 0.4 mg/dL (0.2-1.2); Calc. Creatinine Clearance 0 mL/min (70-130); Calcium 9.4 mg/dL (7.8-10.44); Carbon Dioxide 27 mmol/L (22-29); Chloride 101 mmol/L (98-107); Estimated GFR-MDRD Greater than 90; Globulin 3.5 g/dL (2.4-3.5); Glucose 112 mg/dL (70-105); Potassium 4.7 mmol/L (3.5-5.1); Protein, Total 7.7 g/dL (6.0-8.3); Sodium 135 mmol/L (136-145)
[2020-03-23] MEDS ORDERED: Fentanyl 100 MCG/2 ML VIAL ONE ×2 (16:05→16:38)
[2020-03-23] MEDS ORDERED: Iothalamate Meglumine 60% 50 ML VIAL FS ONE (16:41)
[2020-03-23] MEDS ORDERED: Midazolam HCl 2 mg/2 ml Vial ONE (17:11)
[2020-03-23] MEDS ORDERED: Scopolamine 1.5 mg/72 hour Patch ONE (17:12)
[2020-03-23] MEDS ORDERED: Meperidine HCl/PF 25 MG/ML VIAL ONE (18:27)
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
--- NOTE | 2020-03-23 19:45 | RAD ---
CYSTOGRAM: 03/23/20 HISTORY: Suprapubic tube malfunction replacement under fluoro by urologist. A series of C-arm films which show a suprapubic catheter on the lateral images. Contrast is injected into the bladder confirming position. IMPRESSION: Suprapubic tube placement. POS: KYM
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
== END 2020-03-23 19:11 | disposition home or self-care (01) ==
LOC: ERS 11:35 → SDC/OP 16:55
PROVIDERS: ATTEND Urology
PROC: 0T2BX0Z Change Drainage Device in Bladder, External Approach (ICD-10-PCS; principal; 2020-03-23)
DX: T83.090A Other mechanical complication of cystostomy catheter, initial encounter (principal); R33.8 Other retention of urine; F17.210 Nicotine dependence, cigarettes, uncomplicated; Z79.899 Other long term (current) drug therapy; Z88.8 Allergy status to other drugs, medicaments and biological substances
CPT/HCPCS: 36415; 51600; 74430; 80053; 81003; 81015; 85025; 87086; J0690; J1885; J2175; J2250; J2270; J2405; J2704; J3010

== ENCOUNTER 2020-03-29 11:46 | Day surgery (SDC) | payer OTHER ==
[2020-03-28 13:06] VITALS: BMI 28.0
[~2020-03-29 11:46] MED LIST changes: -Ketorolac Tromethamine 30 MG/ML VIAL ONE; -Lidocaine 1% PF 5 ML VIAL ONE
[2020-03-29] MEDS ORDERED: Fentanyl 100 MCG/2 ML VIAL ONE (14:00)
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
== END 2020-03-29 15:49 | disposition home or self-care (01) ==
LOC: SDC 11:46
PROVIDERS: ATTEND Orthopaedic Surgery
PROC: 0QP Lower Bones, Removal (ICD-10-PCS; principal; 2020-03-29)
PROC: 0QP Lower Bones, Removal (ICD-10-PCS; principal; 2020-03-29)
DX: T84.84XA Pain due to internal orthopedic prosthetic devices, implants and grafts, initial encounter (principal); J45.909 Unspecified asthma, uncomplicated; F41.9 Anxiety disorder, unspecified; Z79.899 Other long term (current) drug therapy; Z88.8 Allergy status to other drugs, medicaments and biological substances; Z87.891 Personal history of nicotine dependence
CPT/HCPCS: 71046; 72070; 72100; J0690; J2405; J2704; J3010

== ENCOUNTER 2020-04-11 10:32 | Outpatient (CLI) | payer SELFPAY, OTHER ==
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
== END 2020-04-11 10:33 | disposition home or self-care (01) ==
LOC: MRI 10:32
PROVIDERS: ATTEND Neurological Surgery
DX: M54.16 Radiculopathy, lumbar region (principal); R93.7 Abnormal findings on diagnostic imaging of other parts of musculoskeletal system
CPT/HCPCS: 72148

== ENCOUNTER 2020-04-19 12:20 | Outpatient (CLI) | payer OTHER ==
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
== END 2020-04-19 12:21 | disposition home or self-care (01) ==
LOC: CT 12:20
PROVIDERS: ATTEND Neurological Surgery
DX: M54.16 Radiculopathy, lumbar region (principal); S22.089A Unspecified fracture of T11-T12 vertebra, initial encounter for closed fracture; Z98.890 Other specified postprocedural states
CPT/HCPCS: 72131

== ENCOUNTER 2020-04-25 12:10 | Outpatient (CLI) | payer OTHER ==
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
== END 2020-04-25 12:11 | disposition home or self-care (01) ==
LOC: BICULT 12:10
PROVIDERS: ATTEND Neurological Surgery
DX: R60.0 Localized edema (principal); M79.606 Pain in leg, unspecified

== ENCOUNTER 2020-05-22 10:59 | Outpatient (CLI) | payer OTHER ==
--- NOTE | 2020-05-22 11:28 | RAD ---
Exam: Lumbar spine 3 views COMPARISON: 03/29/2029 correlation: CT lumbar spine 04/19/2020 FINDINGS: 5 lumbar type vertebra. Lumbar spine vertebral body heights are maintained. No fracture. Pr eserved disc space height. No spondylolisthesis or spondylolysis. Stable screws traversing the right SI joint. Right SI joint is still patent. Limited evaluation for i nterval development of callus formation. Subtle lucency along the inferior aspect of the right S1/S2 vertebral body is noted suggesting incomplete healing. Mild deformity along the superior endplate of T11 and T12 IMPRESSION: Incompletely healed right sacral fracture.
== END 2020-05-22 11:00 | disposition home or self-care (01) ==
LOC: RAD 10:59
PROVIDERS: ATTEND Neurological Surgery
DX: S32.038D Other fracture of third lumbar vertebra, subsequent encounter for fracture with routine healing (principal); S32.048D Other fracture of fourth lumbar vertebra, subsequent encounter for fracture with routine healing; S32.10XD Unspecified fracture of sacrum, subsequent encounter for fracture with routine healing
CPT/HCPCS: 72100

== ENCOUNTER 2020-08-05 15:33 | Emergency (ER) | payer OTHER ==
[2020-08-05 17:03] LABS: #Eosinphils 0.2 thou/uL (0.0-0.7); #Lymphocytes 1.6 thou/uL (1.20-3.40); #Monocytes 0.6 thou/uL (0.11-0.59); #Neutrophils 8.7 thou/uL (1.40-6.50); %Basophils 0.4 % (0.0-1.0); %Eosinophils 2.1 % (0.0-10.0); %Lymphocytes 14.3 % (21.0-51.0); %Monocytes 5.6 % (0.0-10.0); %Neutrophils 77.6 % (42.0-75.0); Hemoglobin 15.2 g/dL (14.0-18.0); Mean Corpuscular HGB CONC 34.9 g/dL (32.0-36.0); Mean Corpuscular Hemoglobin 33.8 pg (27.0-31.0); Mean Corpuscular Volume 96.6 fL (78.0-98.0); Mean Platelet Volume 6.7 fL (7.4-10.4); Platelet Count 300 thou/uL (130-400); RBC Distribution Width 12.2 % (11.5-14.5); Red Blood Cell (RBC) Count 4.51 mill/uL (4.70-6.10); White Blood Cell (WBC) Count 11.2 thou/uL (4.8-10.8)
[2020-08-05 17:28] LABS: ALT (SGPT) 13 U/L (8-55); AST (SGOT) 15 U/L (5-34); Albumin 4.1 g/dL (3.5-5.0); Alkaline Phosphatase 101 U/L (40-110); Anion Gap 17 mmol/L (10-20); BUN (Urea Nitrogen) 17 mg/dL (8.9-20.6); Bilirubin, Total 0.6 mg/dL (0.2-1.2); Calc. Creatinine Clearance 0 mL/min (70-130); Calcium 9.3 mg/dL (7.8-10.44); Carbon Dioxide 24 mmol/L (22-29); Chloride 104 mmol/L (98-107); Globulin 3.4 g/dL (2.4-3.5); Glucose 94 mg/dL (70-105); Potassium 4.7 mmol/L (3.5-5.1); Protein, Total 7.5 g/dL (6.0-8.3); Sodium 140 mmol/L (136-145)
[2020-08-05 18:09] LABS: Clarity Turbid (Clear)
[2020-08-05 18:11] LABS: Specific Gravity, Urine 1.023 (1.002-1.036)
[2020-08-05 18:14] LABS: Leukocyte Small Leu/uL (Negative); Nitrite Negative (Negative); Protein, Urine (Dipstick) 300 mg/dL (Neg-Trace); pH, Urine 8.5 (5.0-9.0)
[2020-08-05 18:15] LABS: Bilirubin Negative (Negative); Blood, Urine Large (Negative); Glucose, Urine (Dipstick) Negative (Negative); Ketone, Urine Negative (Negative); Squamous Epithelial 0-3 HPF (0-3); Urobilinogen 0.2 mg/dL (Less than 2)
[2020-08-05 18:16] LABS: Bacteria/HPF 3+ HPF (None Seen); Mucous/LPF 3+ LPF (<2+)
== END 2020-08-05 18:37 | disposition home or self-care (01) ==
LOC: ERS 15:33
DX: T83.098A Other mechanical complication of other urinary catheter, initial encounter (principal); F17.210 Nicotine dependence, cigarettes, uncomplicated
CPT/HCPCS: 36415; 51705; 80053; 81003; 81015; 85025; 87077; 87086; 87186

== ENCOUNTER 2020-08-11 16:13 | Emergency (ER) | payer OTHER ==
[2020-08-11 17:48] LABS: #Basophils 0.1 thou/uL (0.0-0.2); #Eosinphils 0.1 thou/uL (0.0-0.7); #Lymphocytes 1.9 thou/uL (1.20-3.40); #Monocytes 0.8 thou/uL (0.11-0.59); #Neutrophils 9.6 thou/uL (1.40-6.50); %Basophils 0.7 % (0.0-1.0); %Eosinophils 1.1 % (0.0-10.0); %Lymphocytes 14.8 % (21.0-51.0); %Monocytes 6.2 % (0.0-10.0); %Neutrophils 77.2 % (42.0-75.0); Hemoglobin 15.7 g/dL (14.0-18.0); Mean Corpuscular HGB CONC 34.2 g/dL (32.0-36.0); Mean Corpuscular Hemoglobin 31.8 pg (27.0-31.0); Mean Corpuscular Volume 92.9 fL (78.0-98.0); Mean Platelet Volume 6.6 fL (7.4-10.4); Platelet Count 420 thou/uL (130-400); RBC Distribution Width 11.8 % (11.5-14.5); Red Blood Cell (RBC) Count 4.93 mill/uL (4.70-6.10); White Blood Cell (WBC) Count 12.5 thou/uL (4.8-10.8)
[2020-08-11 18:10] LABS: ALT (SGPT) 14 U/L (8-55); AST (SGOT) 14 U/L (5-34); Albumin 4.5 g/dL (3.5-5.0); Alkaline Phosphatase 111 U/L (40-110); Anion Gap 16 mmol/L (10-20); BUN (Urea Nitrogen) 12 mg/dL (8.9-20.6); Bilirubin, Total 0.7 mg/dL (0.2-1.2); Calc. Creatinine Clearance 0 mL/min (70-130); Calcium 10.4 mg/dL (7.8-10.44); Carbon Dioxide 26 mmol/L (22-29); Chloride 100 mmol/L (98-107); Globulin 4.2 g/dL (2.4-3.5); Glucose 111 mg/dL (70-105); Lipase 8 U/L (8-78); Potassium 3.6 mmol/L (3.5-5.1); Protein, Total 8.7 g/dL (6.0-8.3); Sodium 138 mmol/L (136-145)
[2020-08-11 19:24] LABS: Bilirubin Negative (Negative); Blood, Urine 3+ (Negative); Clarity Extra Turbid (Clear); Glucose, Urine (Dipstick) Normal (Negative); Ketone, Urine 60 mg/dL (Negative); Leukocyte 500 Leu/uL (Negative); Nitrite Negative (Negative); Protein, Urine (Dipstick) 200 mg/dL (Neg-Trace); RBC/HPF Greater than 50 HPF (0-3); Specific Gravity, Urine 1.021 (1.002-1.036); Squamous Epithelial 0-3 HPF (0-3); Urobilinogen Normal mg/dL (Less than 2); WBC/HPF Greater than 50 HPF (0-3); pH, Urine 7.5 (5.0-9.0)
[2020-08-11 19:27] LABS: Bacteria/HPF 1+ HPF (None Seen)
--- NOTE | 2020-08-11 20:19 | RAD ---
KUB AND UPRIGHT: History: Abdominal pain, more left sided. FINDINGS: The bowel gas pattern is nonobstructed. No free air. Post operative changes of the sacrum are seen. T wo screws extend through the right SI joint. IMPRESSION: NO acute findings. POS: KYM
== END 2020-08-11 19:58 | disposition home or self-care (01) ==
LOC: ERS 16:13
DX: K59.00 Constipation, unspecified (principal); F17.210 Nicotine dependence, cigarettes, uncomplicated
CPT/HCPCS: 36415; 74019; 80053; 81003; 81015; 83690; 85025; 87077; 87086; 87186

== ENCOUNTER 2020-08-13 17:36 | Emergency (ER) | payer OTHER ==
[~2020-08-13 17:36] MED LIST changes: +Iopamidol-370 76% 500 ML 1 ML ONE; -Ondansetron PF 4 MG/2 ML Vial ONE; -PROPOFOL 200 MG/20 ML VIAL ONE
[2020-08-13 20:25] LABS: #Basophils 0.1 thou/uL (0.0-0.2); #Eosinphils 0.3 thou/uL (0.0-0.7); #Lymphocytes 2.2 thou/uL (1.20-3.40); #Monocytes 1.1 thou/uL (0.11-0.59); #Neutrophils 7.8 thou/uL (1.40-6.50); %Basophils 0.7 % (0.0-1.0); %Eosinophils 2.5 % (0.0-10.0); %Lymphocytes 19.3 % (21.0-51.0); %Monocytes 9.8 % (0.0-10.0); %Neutrophils 67.6 % (42.0-75.0); Hemoglobin 14.2 g/dL (14.0-18.0); Mean Corpuscular HGB CONC 33.1 g/dL (32.0-36.0); Mean Corpuscular Hemoglobin 31.1 pg (27.0-31.0); Mean Platelet Volume 6.7 fL (7.4-10.4); Platelet Count 421 thou/uL (130-400); RBC Distribution Width 11.7 % (11.5-14.5); Red Blood Cell (RBC) Count 4.56 mill/uL (4.70-6.10); White Blood Cell (WBC) Count 11.5 thou/uL (4.8-10.8)
[2020-08-13 20:49] LABS: ALT (SGPT) 15 U/L (8-55); AST (SGOT) 14 U/L (5-34); Albumin 4.3 g/dL (3.5-5.0); Alkaline Phosphatase 98 U/L (40-110); Anion Gap 15 mmol/L (10-20); BUN (Urea Nitrogen) 15 mg/dL (8.9-20.6); Bilirubin, Total 0.6 mg/dL (0.2-1.2); Calc. Creatinine Clearance 0 mL/min (70-130); Calcium 9.4 mg/dL (7.8-10.44); Carbon Dioxide 28 mmol/L (22-29); Chloride 100 mmol/L (98-107); Globulin 3.9 g/dL (2.4-3.5); Glucose 87 mg/dL (70-105); Potassium 4.1 mmol/L (3.5-5.1); Protein, Total 8.2 g/dL (6.0-8.3); Sodium 139 mmol/L (136-145)
--- NOTE | 2020-08-13 21:24 | CT ---
CT OF THE ABDOMEN AND PELVIS WITH IV CONTRAST INDICATION: Left-sided abdominal pain with UTI COMPARISON: CT the chest, abdomen and pelvis dated February 29, 2020 FINDINGS: ABDOMEN: Lung bases: Clear Liver: No focal lesion. Gallbladder: Normal appearing. Pancreas: Normal. Adrenal glands: Normal. Spleen: Normal. Kidneys and ureters: There is a mild left hydronephrosis. There is a 3.2 mm calculus within the dista l left ureter at the level of the true pelvis. The right kidney is normal-appearing. Vasculature: Normal. Lymph nodes:No lymphadenopathy. Free fluid in abdomen:No free fluid is evident. PELVIS: Small and large bowel: Normal Appendix:Not definitely seen Bladder: There is a suprapubic bladder catheter. There are linear densities within the posterior aspe ct of bladder suspicious for multiple small bladder stones. Rectal and perirectal soft tissues:Normal. Reproductive structures: Prostate appears mildly enlarged measuring 5.1 cm. Free fluid in pelvis: No free fluid is evident. Lymphadenopathy pelvis: No lymphadenopathy is evident. Osseous structures: There is an incompletely healed left pubic body and left obturator ring fracture. There are 2 separate SI joint screws transfixing the right SI joint with interval healing of the right sacral ala fracture. There are are healed mild superior endplate compression abnormalities invo lving T11 and. There are bilateral pars defects at L5. Soft tissues:Normal. IMPRESSION: 1. 3.2 mm distal left ureteral calculus with mild left hydronephrosis. 2. Suprapubic catheter with multiple layered densities within the posterior aspect of the bladder laura picious for multiple bladder stones. 3. Incompletely healed left pubic body and left obturator ring fracture. Right-sided SI joint arthrod esis and interval healing the right sacral ala fracture. Healed mild superior endplate compression abnormalities of T11 and T12.
[2020-08-13] MEDS ORDERED: Fentanyl 100 MCG/2 ML VIAL ONE (21:32)
[2020-08-13] MEDS ORDERED: cefTRIAXone\\ROCEPHIN 2 GM VIAL ONE ×2 (21:48→21:51)
== END 2020-08-13 22:18 | disposition home or self-care (01) ==
LOC: ERS 17:36
DX: N13.2 Hydronephrosis with renal and ureteral calculous obstruction (principal); N30.00 Acute cystitis without hematuria; T83.018A Breakdown (mechanical) of other urinary catheter, initial encounter; F17.210 Nicotine dependence, cigarettes, uncomplicated
CPT/HCPCS: 36415; 74177; 80053; 85025; 96374; 96375; J0696; J3010; Q9967

== ENCOUNTER 2020-09-16 08:45 | Emergency (ER) | payer OTHER ==
[2020-09-16] MEDS ORDERED: HYDROcodone/Acetaminophen 5/325 mg Tablet ONE (09:39)
[2020-09-16] MEDS ORDERED: Morphine 4 MG/ML VIAL ONE (10:03)
[2020-09-16 11:53] LABS: Bacteria/HPF 4+ HPF (None Seen); Bilirubin Negative (Negative); Blood, Urine 2+ (Negative); Clarity Extra Turbid (Clear); Glucose, Urine (Dipstick) Normal (Negative); Ketone, Urine Negative (Negative); Leukocyte 500 Leu/uL (Negative); Nitrite Negative (Negative); Protein, Urine (Dipstick) 70 mg/dL (Neg-Trace); RBC/HPF Greater than 50 HPF (0-3); Specific Gravity, Urine 1.021 (1.002-1.036); Squamous Epithelial None Seen HPF (0-3); Urobilinogen Normal mg/dL (Less than 2); WBC/HPF Greater than 50 HPF (0-3); pH, Urine 6.5 (5.0-9.0)
[2020-09-16] MEDS ORDERED: cefTRIAXone\\ROCEPHIN 1 GM VIAL ONE (13:16)
== END 2020-09-16 14:30 | disposition home or self-care (01) ==
LOC: ERS 08:45
DX: T83.098A Other mechanical complication of other urinary catheter, initial encounter (principal); N39.0 Urinary tract infection, site not specified; F17.210 Nicotine dependence, cigarettes, uncomplicated
CPT/HCPCS: 51705; 81003; 81015; 87077; 87086; 87186; 96365; 96372; J0696; J2270